=== PATIENT | male | born 1990 | race Caucasian/White ===

== ENCOUNTER 2021-04-07 15:51 | Emergency (ER) | payer BC ==
[2021-04-07] MEDS ORDERED: XYLOCAINE 1% HCL 20 ML MDV ONE (16:07)
[2021-04-07] MEDS ORDERED: Adacel Vial IM ONE ×2 (16:26→16:30)
--- NOTE | 2021-04-07 16:28 | ERPHSYRPT ---
- History of Present Illness Time Seen by Provider: 04/07/21 15:52 Source: patient Exam Limitations: no limitations Patient Subjective Stated Complaint: laceration Triage Nursing Assessment: Patient ambulated back to ED and transferred self to bed. Patient A+O X 3. Patient's skin pink, warm and dry. Patient states he was carrying sheat metal when he dropped it landing on his left forarm. Patient has 3cm X 2 cm noted to left forearm. Patient denies pain or discomfort. Physician History: 30-year-old right-handed dominant male presented in the ER with chief complaint of left upper forearm laceration while he was dealing with metal sheets and accidentally dropped on his left arm causing laceration prior to arrival. There was bleeding initially but stopped with applying pressure. Complaining of mild dull aching pain with movement/palpation. No difficulty movements of elbow. Unsure about tetanus status. Timing/Duration: today, sudden Quality: painful Severity: mild Location: extremities Possible Causes: other Associated Symptoms: denies symptoms Allergies/Adverse Reactions: cat dander Allergy (Verified 04/07/21 15:59) Home Medications: No Reportable Medications [No Reported Medications] 10/29/18 [History] Hx Tetanus, Diphtheria Vaccination/Date Given: (unsure) Hx Influenza Vaccination/Date Given: No Hx Pneumococcal Vaccination/Date Given: No Immunizations Up to Date: Yes Travel Risk - International Travel Have you traveled outside of the country in past 3 weeks: No - Coronavirus Screening Are you exhibiting any of the following symptoms?: No Close contact with a COVID-19 positive Pt in past 14-21 Days: No - Vaccine Status Have you recieved a Covid-19 vaccination: No - Review of Systems Constitutional: No Symptoms Ears, Nose, & Throat: No Symptoms Respiratory: No Symptoms Cardiac: No Symptoms Abdominal/Gastrointestinal: No Symptoms Musculoskeletal: Injury Skin: Skin Lesions Neurological: No Symptoms Psychological: No Symptoms Endocrine: No Symptoms Hematologic/Lymphatic: No Symptoms - Past Medical History Pertinent Past Medical History: Yes Neurological History: No Pertinent History ENT History: No Pertinent History Cardiac History: Arrhythmia Respiratory History: No Pertinent History Endocrine Medical History: No Pertinent History Musculoskeletal History: No Pertinent History GI Medical History: No Pertinent History History: No Pertinent History Psycho-Social History: No Pertinent History Male Reproductive Disorders: No Pertinent History - Past Surgical History Past Surgical History: Yes Neuro Surgical History: No Pertinent History Cardiac: No Pertinent History Respiratory: No Pertinent History Gastrointestinal: No Pertinent History Genitourinary: No Pertinent History Musculoskeletal: Orthopedic Surgery Male Surgical History: No Pertinent History Other Surgical History: left shoulder surgery x2 - Social History Smoking Status: Current every day smoker How long have you smoked: years Exposure to second hand smoke: No Drug Use: none Patient Lives Alone: No - Nursing Vital Signs Nursing Vital Signs: Initial Vital Signs Temperature 98.3 F 04/07/21 16:00 Pulse Rate 93 H 04/07/21 16:00 Respiratory Rate 18 04/07/21 16:00 Blood Pressure 169/77 04/07/21 16:00 O2 Sat by Pulse Oximetry 97 04/07/21 16:00 Pain Scale Pain Intensity 0 - Physical Exam General Appearance: no apparent distress, alert Neck Exam: normal inspection, full range of motion Respiratory Exam: normal breath sounds, lungs clear Cardiovascular Exam: regular rate/rhythm, normal heart sounds Back Exam: normal inspection, normal range of motion Extremity Exam: normal range of motion, pelvis stable, lacerations (3 cm superficial laceration left forearm volar aspect. Minimal oozing. Tender to palpation.), tenderness Neurologic Exam: alert, oriented x 3, cooperative Skin Exam: normal color SpO2 Interpretation: normal SpO2: 97 O2 Delivery: Room Air Procedures - Laceration/Wound Repair Left Volar Arm Time of Procedure: 16:15 Wound Location: Left, lower arm Wound Length (cm): 3 Wound's Depth, Shape: superficial Wound Explored: clean Irrigated: Yes Hibiclens Prep: Yes Anesthesia: 1% Lidocaine Volume Anesthetic (ccs): 5 Wound Repaired With: sutures Suture Size/Type: 3-0 Number of Sutures: 6 Sterile Dressing Applied?: Yes Ordered Tests: Medication Summary Discontinued Medications Generic Name Dose Route Start Last Admin Trade Name Freq PRN Reason Stop Dose Admin Diphtheria/Tetanus/Acell Pertussis 0.5 ml 04/07/21 16:26 Tdap --Diph,Pertuss(Acell),Tet Vac/Pf 0.5 Ml Vial IM 04/07/21 16:27 .ONCE ONE Lidocaine HCl Confirm 04/07/21 16:07 Lidocaine Hcl 1% 20 Ml Mdv 20 Ml Ml Administered 04/07/21 16:08 Dose 5 ml .ROUTE .[facility] - Progress Progress: improved Progress Note: 04/07/21 16:26 Superficial laceration, will repaired, tetanus updated. Outpatient follow-up. Clean wound do not think needs antibiotic. Recommended Tylenol ibuprofen as needed. Counseled pt/family regarding: diagnosis, need for follow-up - Departure Departure Disposition: Home Clinical Impression: Forearm laceration Qualifiers: Encounter type: initial encounter Laterality: left Qualified Code(s): S51.812A - Laceration without foreign body of left forearm, initial encounter Condition: Stable Critical Care Time: No Referrals: OBINNA AHUMADA [ACTIVE STAFF] - Follow Up with PCP/3 days Instructions: Laceration Repair With Stitches (DC) Additional Instructions: Take Tylenol/ibuprofen as needed. Keep it clean. Follow-up with primary care for reevaluation. Suture removal in 10 to 12 days. Return to ER for increasing pain swelling redness discharge/fever chills etc.
== END 2021-04-07 16:36 | disposition home or self-care (01) ==
LOC: ED 15:51
DX: S51.812A Laceration without foreign body of left forearm, initial encounter (principal); W20.8XXA Other cause of strike by thrown, projected or falling object, initial encounter; Y93.89 Activity, other specified; Y92.89 Other specified places as the place of occurrence of the external cause
CPT/HCPCS: 12002; 90471; 90715; 99283